=== PATIENT | male | born 1940 | race Caucasian/White ===

== ENCOUNTER 2020-08-13 04:13 | Day surgery (SDC) | payer OTHER ==
[2020-08-12 12:40] VITALS: BMI 25.3
[2020-08-13] MEDS ORDERED: DEXAMETHASONE SOD PHOSPHATE 10 MG/1 ML VIAL ONE (07:33)
[2020-08-13] MEDS ORDERED: BUPIVACAINE HCL/PF 0.5% (5MG/ML) 10 ML VIAL ONE (07:34)
[2020-08-13] MEDS ORDERED: SODIUM CHLORIDE 0.9% P/F 10 ML VIAL IJ ONE (07:36)
[2020-08-13 10:51] VITALS: PULSE 62
[2020-08-13] MEDS ORDERED: IOHEXOL 180 MG/1 ML ML IJ ONE (11:40)
[2020-08-13] MEDS ORDERED: LIDOCAINE 1% P/F 10 MG/ML VIAL PNB ONE (11:41)
[2020-08-13] MEDS ORDERED: DEXAMETHASONE SOD PHOSPHATE 10 MG/1 ML VIAL IVPUSH ONE (11:43)
[2020-08-13 12:39] VITALS: BP 189/89; TEMP 97.2
== END 2020-08-13 12:15 | disposition home or self-care (01) ==
LOC: JASU-SURG 04:13
PROVIDERS: ATTEND Pain Medicine Pain Medicine
DX: Z53.8 Procedure and treatment not carried out for other reasons (principal)
CPT/HCPCS: C9803; J1100; U0003; U0005

== ENCOUNTER 2020-08-13 12:18 | Emergency (ER) | payer OTHER ==
[2020-08-13 13:19] VITALS: BP 175/81; PULSE 58; TEMP 97.7; BMI 25.3
== END 2020-08-13 13:35 | disposition home or self-care (01) ==
LOC: JER 12:18
PROC: 3E033NZ Introduction of Analgesics, Hypnotics, Sedatives into Peripheral Vein, Percutaneous Approach (ICD-10-PCS; principal; 2020-08-13)
DX: R03.0 Elevated blood-pressure reading, without diagnosis of hypertension (principal)
CPT/HCPCS: 96374; 99284-25